=== PATIENT | female | born 1970 ===

== ENCOUNTER → 2019-02-08 | Outpatient (CLI) | payer OTHER ==
[~2019-02-08] MED LIST: CIP500 PO; IBUP-1671 PO; LOR5/325 PO; MULT-1335 PO; MULT1CAP59 PO; NO CURRENT MEDS; PAN40 PO; PER PO; VITA1CAP46 PO
--- NOTE | 2019-02-13 12:27 | RADIOLOGY IMAGING REPORT ---
FACILITY: [facility] PATIENT NAME: MADIHA SHAH : [id number] MR: [id number] V: [id number] EXAM DATE: [id number] ORDERING PHYSICIAN: JENNI LIRA TECHNOLOGIST: Kelin Betancourt RDMS(ABD,OBGYN,BR),RVT PROCEDURE:US LEFT BREAST COMPARISON:None. INDICATIONS:LEFT BREAST LUMP LEFT BREAST ULTRASOUND AREA SCANNED: The entire Left breast was imaged. ULTRASOUND FINDINGS: No sonographic abnormality was identified in the 9 o'clock position to account for patient's palpable abnormality. There is a small dilated duct/cyst in the 10 o'clock position of the Left breast 4cm from the nipple measuring 4.9 x 6.7 x 2.2cm. In the 2 o'clock position of the Left breast 10cm from the nipple there is a 2.7mm cyst. DIAGNOSTIC CATEGORY 2--BENIGN FINDING. RECOMMENDATIONS: ROUTINE MAMMOGRAM AND CLINICAL EVALUATION. IMPRESSION: BIRADS 2: Benign finding. There is a small cyst/dilated duct in the 10 o'clock position of the Left breast and a tiny cyst in the 2 o'clock position of the Left breast. No abnormality identified in the 9 o'clock position. Clinical follow-up recommended for patient's palpable findings. Dictated by: Domitila Haque M.D. on 02/08/2019 at 15:27 Transcribed by: DORIS on 02/09/2019 at 10:31 Approved by: Domitila Haque M.D. on 02/13/2019 at 12:26 [facility]
--- NOTE | 2019-02-13 12:27 | RADIOLOGY IMAGING REPORT ---
FACILITY: [facility] PATIENT NAME: MADIHA SHAH : [id number] MR: [id number] V: [id number] EXAM DATE: ORDERING PHYSICIAN: JENNI LIRA TECHNOLOGIST: Lynn Gunn PROCEDURE:BILATERAL DIAGNOSTIC DIGITAL MAMMOGRAM WITH CAD ASSISTED INTERPRETATION & 3D TOMOSYNTHESIS REASON FOR STUDY: Palpable lump 9 o'clock position of the Left breast. FAMILY HISTORY OF BREAST CANCER: Maternal aunt and questionable paternal aunt. BREAST PROCEDURES/TREATMENTS: None COMPARISON STUDIES: Prior mammograms 12/29/16, 09/09/15, 08/19/15. MAMMOGRAM VIEWS OBTAINED: Bilateral 2D & 3D full field CC & MLO projections. BREAST DENSITY: The breasts are heterogeneously dense which can obscure small masses. MAMMOGRAM FINDINGS: Most of the parenchymal pattern has remained stable allowing for difference in mammographic technique & patient positioning. Posterior to midline in the posterior 1/3 of the Right breast on the Right MLO view there is a small ovoid nodular density best seen on Tomographic slice 12. This likely represents the nodule described on the previous MR of the breast from 01/12/17 in the 8 o'clock position. This appears to be in the lateral portion of the Right breast on the Right CC view Tomographic slice 8. LEFT BREAST ULTRASOUND AREA SCANNED: The entire Left breast was imaged. ULTRASOUND FINDINGS: No sonographic abnormality was identified in the 9 o'clock position to account for patient's palpable abnormality. There is a small dilated duct/cyst in the 10 o'clock position of the Left breast 4cm from the nipple measuring 4.9 x 6.7 x 2.2cm. In the 2 o'clock position of the Left breast 10cm from the nipple there is a 2.7mm cyst. DIAGNOSTIC CATEGORY 2--BENIGN FINDING. RECOMMENDATIONS: ROUTINE MAMMOGRAM AND CLINICAL EVALUATION. IMPRESSION: BIRADS 2: Benign finding. There is a small cyst/dilated duct in the 10 o'clock position of the Left breast and a tiny cyst in the 2 o'clock position of the Left breast. No abnormality identified in the 9 o'clock position. Clinical follow-up recommended for patient's palpable findings. Dictated by: Domitila Haque M.D. on 02/08/2019 at 15:26 Transcribed by: DORIS on 02/09/2019 at 10:32 Approved by: Domitila Haque M.D. on 02/13/2019 at 12:26 [facility]
== END ==
LOC: US 02-07 13:50
PROVIDERS: ATTEND Student in an Organized Health Care Education/Training Program
DX: R92.8 Other abnormal and inconclusive findings on diagnostic imaging of breast (principal); N63.20 Unspecified lump in the left breast, unspecified quadrant; Z80.3 Family history of malignant neoplasm of breast
CPT/HCPCS: 77062; 77066